=== PATIENT | female | born 1985 | race Caucasian/White ===

== ENCOUNTER 2017-04-07 13:55 | Inpatient (IN) ==
[2017-04-07] MEDS ORDERED: Ondansetron 4 MG/2 ML VIAL IVP PRN ×2 (14:30→20:11)
[2017-04-07] MEDS ORDERED: Famotidine 20 MG/2 ML VIAL IVP PRN (14:30)
[2017-04-07] MEDS ORDERED: Ringers Solution, Lactated 1,000 ML IVC SCH ×2 (14:30→20:11)
[2017-04-07] MEDS ORDERED: Naloxone 0.4 MG/ML INJ IVP PRN (14:30)
[2017-04-07] MEDS ORDERED: Metoclopramide 10 MG/2 ML VIAL IVP PRN ×2 (14:30→20:11)
[2017-04-07] MEDS ORDERED: CeFAZolin Premix DUPLEX 2,000 MG/50 ML BAG IVPB ONE (14:35)
[2017-04-07 14:47] LABS: Basophils % 0.1 %; Hematocrit 37.2 % (35.3-44.9); Hemoglobin 12.9 g/dL (11.5-15.4); Immature Granulocytes % 0.5 % (0-4); Lymphocytes # 2.3 K/mcL (0.6-4.6); Lymphocytes % 14.3 %; Mean Corpuscular HGB Conc 34.7 g/dL (31.6-35.5); Mean Corpuscular Hemoglobin 30.9 pg (28.0-33.3); Mean Corpuscular Volume 89.2 fL (83.0-100.0); Mean Platelet Volume 10.5 fL (9.4-12.4); Monocytes # 0.8 K/mcL (0.0-1.3); Monocytes % 5.2 %; Neutrophils # 12.8 K/mcL (1.6-8.9); Platelet Count 393 K/mcL (140-400); Red Blood Count 4.17 M/mcL (3.82-4.97); Red Cell Distribution Width 12.2 % (11.5-14.5); Segmented Neutrophils % 79.9 %
--- NOTE | 2017-04-07 16:10 | Anesthesia Evaluation PreOp ---
Date of Encounter: 04/07/17 Time of Encounter: 16:08 - Past History Planned Operation: csection Cardiac History: Denies any Significant Hx Pulmonary History: Smoker (1 pack per day), Pack/yr (12) EMERGENCY PLANNING AND RESPONSE MANAGER History: Denies Any Significant HX Other Medical History: Other (Frequent heartburn during ) Anesthesia History: No Prior Anesthetic Complications, Past Anesthesia ( Discectomy L3-4 in 2005) : Yes (37 weeks ) Alcohol Use: none Drug use: none Medications and Allergies Vitamins 04/07/17 [History] 3 Allergy/AdvReac Type Severity Reaction Status Date / Time sulfamethoxazole Allergy Vomiting Verified 07/12/16 19:26 [From Bactrim] trimethoprim [From Bactrim] Allergy Vomiting Verified 07/12/16 19:26 - Meds/Allergy Pre-op Review Medications Reviewed: Yes Allergies Reviewed: Yes Beta Blockers on Current Med List: No Anesthesia Results - Labs 04/07/17 14:30 Anesthesia Exam O2 Sat Height 1.65 m Height 1.65 m Weight 104.8 kg Weight 104.8 kg Height: 65 Weight: 105 NPO (# of Hours): greater than 8 hrs - HEENT Pupil (Motor): Pupils equal Mallampati: I Teeth: Normal Oral Opening: Greater than 3 - EMERGENCY PLANNING AND RESPONSE MANAGER LOC: Oriented EMERGENCY PLANNING AND RESPONSE MANAGER Motor: Normal RUE, Normal LUE, Normal RLE, Normal LLE, Normal Face EMERGENCY PLANNING AND RESPONSE MANAGER Sensory: Normal: RUE, LUE, RLE, LLE, Face - Cardiac Rhythm: Regular Murmur: None JVD: No Carotid Bruit: No - Pulmonary Breath Sounds: bilateral Clear Respiratory Effort: Symmetrical Anesthesia Assess/Plan ASA Score: 2 Modified [place] Scale for Level of Consciousness: Cooperative, oriented, and tranquil Anesthetic Plan: Regional Monitoring Plan: Standard Monitors Recovery Plan: PACU
--- NOTE | 2017-04-07 16:38 | OB/GYN History & Physical ---
Date of Encounter: 04/07/17 Time of Encounter: 16:35 Assessment and Plan (1) and not yet delivered in third trimester Current visit: Yes Status: Acute (2) 37 weeks gestation of Current visit: Yes Status: Acute (3) Previous section complicating Current visit: Yes Status: Acute (4) Intrauterine growth restriction (IUGR) affecting care of mother, third trimester, single gestation Current visit: Yes Status: Acute Patient will be prepared for a repeat low transverse section History of Present Illness HPI: Ms. Garcia is a 31 year old female 2 para 1 at 37-0/7 weeks by a 9-5/ 7 week ultrasound who presented to labor and delivery from the office for section due to intrauterine growth restriction. Patient is a scheduled repeat section approximately 2 weeks however today we did a growth ultrasound and it showed the baby was less than the 10th percentile on growth with all measurements close to the 2.5 percentile amniotic fluid index was also 10 cm due to the intrauterine growth restriction and being 37 weeks delivery was recommended and since she is a repeat section she will undergo that. Patient had signed tubal papers but only wants tubal ligation if the lower uterine segment is thin and has not recommended she have any more babies. Patient is O+, rubella positive, GBS positive Past Med Surg Social Fam HX - Past Medical History Source: patient, old records reviewed Medical history: no medical history Psychiatric history: no psych history - Past Surgical History Surgical History: , other (Back surgery L4-L5 herniated disc repair) - Social History Smoking Status: Current every day smoker Smokeless Tobacco Status: No Alcohol use: none Drug use: none Occupational status: unemployed Current living situation: Home - Independent Activity Level: Independent ambulation Recent Out of Country Travel Within the Last 8 Weeks: No Exposure or Possible Exposure to Illness During Travel: No - Family History Mother Living Status: Still Living Hx Family Psychosocial Disorders: Yes (schizophrenia) - Additional Family History Additional family history: Family history noncontributory at this time Obstetrical History - Pregnancies : 2 Para: 1 Term: 1 : 0 Ab's: 0 Livin Medications and Allergies Vitamins 04/07/17 [History] 3 Allergy/AdvReac Type Severity Reaction Status Date / Time sulfamethoxazole Allergy Vomiting Verified 07/12/16 19:26 [From Bactrim] trimethoprim [From Bactrim] Allergy Vomiting Verified 07/12/16 19:26 Review of System OB All systems PM: reviewed and no additional remarkable complaints except as stated Exam - Constitutional Constitutional: well developed, well nourished, no acute distress, average body habitus - HEENT HEENT: EOMI, PERRL - Neck Neck exam: full ROM - Lungs Respiratory exam: CTAB - Cardiovascular Cardiovascular exam: RRR - Abdomen Abdomen: Present: bowel sounds normal, gravid - Cervix Dilation: 0 Effacement: 50 Station: -3 - Comments Comments: heart tones 140s reactive occasional contractions seen Results Result Diagrams: 04/07/17 14:30 Abnormal lab results WBC 16.1 K/mcL (4.3-11.1) H 04/07/17 14:30 Neutrophils # 12.8 K/mcL (1.6-8.9) H 04/07/17 14:30 All other labs normal. - VTE Reasons for not Prescribing Prophylaxis: Treatment not Indicated - Low risk for VTE
[2017-04-07] MEDS ORDERED: *HR* FentaNYL (PF) 100 MCG/2 ML VIAL ONE (16:46)
[2017-04-07] MEDS ORDERED: Morphine Sulfate/PF 5mg/10mL Vial ONE (16:46)
[2017-04-07] MEDS ORDERED: *HR* Oxytocin 10 UNIT/ML VIAL IM ONE (17:05)
[2017-04-07] MEDS ORDERED: Ringers Solution, Lactated 1,000 ML ONE (17:05)
[2017-04-07] MEDS ORDERED: *HR* Phenylephrine 10 MG/ML VIAL ONE (17:05)
[2017-04-07] MEDS ORDERED: Ketorolac 30 MG/ML VIAL IVP PRN (17:20)
[2017-04-07] MEDS ORDERED: *HR* OxyCODONE Immed Rel 5 MG TABLET PO PRN (17:20)
--- NOTE | 2017-04-07 18:06 | OB/GYN Procedure Note ---
Section - Date of procedure: 04/07/17 Preop diagnosis: other (Intrauterine at 37-0/7 weeks, previous section 1, intrauterine growth restriction less than the 10th percentile) Post-op diagnosis: same Procedure: repeat low transverse Surgeon: Houston Nuñez Estimated blood loss (cc): 400 Was there an surgical assistant certified present: No Anesthesiologist: Loan Romero Artificial Fly Tier: Cal Ervin Anesthesia Type: Spinal section complications: none Disposition: L&D Recovery Room Specimens: Placenta - Infant (s) A Delivery Date: 04/07/17 Delivery Time: 17:20 Presentation: vertex Position: JING Route of delivery: other ( section) Gender: Female Viability: Viable Pounds: 5 Ounces: 7 Gram Weight: 2.46 kg at 1 minute: 8 at 5 minutes: 9 Shoulder Dystocia: not encountered Specimens collected: cord blood Placenta: spontaneous Cord: nuchal cord, 3 umbilical vessels, nuchal reduced - Narrative Narrative: Patient is a 31-year-old 2 para 1 at 37-0/7 weeks who had presented from the office secondary to intrauterine growth restriction diagnosed on a recent ultrasound. Patient was in the office for visit had an ultrasound for growth showed that the baby was less than the 10th percentile with most of the measurements measuring at the 2.5 percentile because she was 37 weeks previous section case was discussed with 1 partners agree patient needs to be delivered and she was sent over for repeat section. Patient had signed tubal papers but only wanted a tubal if that lower uterine segment was thin and I did not recommend any more children. Procedure: Patient was taken to the operating room where spinal anesthesia was found be adequate. She was placed in the dorsal supine position prepped and draped in usual fashion. Timeout was obtained. A Pfannenstiel incision was made with a scalpel and carried down through the underlying tissue to the fascia was identified. The fascia was nicked in midline and extended laterally with the Arellano scissors. The superior and inferior edges of the fascia grasped tented up and dissected off the rectus muscles. Rectus muscles were in midline. Peritoneum was identified tented up and entered sharply. This was extended superiorly and inferiorly with Metzenbaum scissors. The bladder blade was inserted the vesicouterine peritoneum was identified tented up and entered sharply. This was extended laterally and the bladder flap was created digitally. The lower uterine segment was incised with the scalpel extended laterally with digital manipulation. Patient had minimal fluid noted this time 's head was delivered there was a nuchal cord 1 loose and reduced the infant was fully delivered the cord was clamped and cut and infant was handed off to waiting pediatric team. Cord blood was collected and placenta was then spontaneously delivered. An Lisbet self-retaining retractor was then placed in the incision the uterus was then cleaned of all clots and debris and the lower uterine segment was closed using 0 Vicryl in a running locking stitch by a 2 layer closure. Good hemostasis was noted. The gutters were cleaned of all clots and debris and copiously irrigated. We did not perform a tubal ligation since the lower segment was not baths and and we did discuss with the patient and she did not want me to proceed on with a tubal ligation. The self- retaining retractor was then removed from the abdomen the fascia was closed using a #1 stratafix in a running stitch the subcutaneous tissue was closed using a 0 chromic in a running stitch and the skin was closed using a 4-0 Vicryl in a subcuticular manner. A PRIMEO dressing was applied to the incision. All needles lap and sponge counts were correct 3 she did receive preoperative antibiotics. She was taken to the recovery room in stable condition she will be observed 2 hours before being taken floor.
[2017-04-07] MEDS ORDERED: *HR* OxyCODONE/APAP 5/325 TABLET PO PRN (20:11)
[2017-04-07] MEDS ORDERED: Simethicone 80 MG TAB.CHEW PO PRN (20:11)
[2017-04-07] MEDS ORDERED: Sennosides 8.6 MG TABLET PO PRN (20:11)
[2017-04-07] MEDS ORDERED: Oxytocin 20 units/ LR 1000 mL 20 UNIT/1,000 ML BAG IVC ONE (20:14)
[2017-04-07] MEDS: Oxytocin 20 units/ LR 1000 mL 20 UNIT/1,000 ML BAG IVC SCH (20:26)
[2017-04-07] MEDS: *HR* OxyCODONE/APAP 10/325 TABLET PO PRN (22:44)
[2017-04-08] MEDS: Oxytocin 20 units/ LR 1000 mL 20 UNIT/1,000 ML BAG IVC SCH (04:04)
[2017-04-08 04:59] LABS: Basophils % 0.2 %; Hematocrit 33.4 % (35.3-44.9); Immature Granulocytes % 0.6 % (0-4); Lymphocytes # 2.5 K/mcL (0.6-4.6); Lymphocytes % 13.5 %; Mean Corpuscular HGB Conc 33.8 g/dL (31.6-35.5); Mean Corpuscular Hemoglobin 30.8 pg (28.0-33.3); Mean Platelet Volume 10.4 fL (9.4-12.4); Monocytes % 5.5 %; Platelet Count 322 K/mcL (140-400); Red Blood Count 3.67 M/mcL (3.82-4.97); Red Cell Distribution Width 12.3 % (11.5-14.5); Segmented Neutrophils % 80.2 %
[2017-04-08 05:03] LABS: Hemoglobin 11.3 g/dL (11.5-15.4)
[2017-04-08] MEDS: *HR* OxyCODONE/APAP 10/325 TABLET PO PRN ×3 (07:31→23:28)
--- NOTE | 2017-04-08 08:46 | OB/GYN Progress Note ---
Date of Encounter: 04/08/17 Time of Encounter: 08:45 - Assessment and Plan (1) Postoperative complication of section Current Visit: Yes Status: Acute Patient doing well status post day #[address] Nuñez on 04/07/17 Repeat at 37 weeks gestation due to intrauterine growth restriction Pain is well-controlled Patient is tolerating regular diet and passing flatus/ voiding without difficulty Lochia is light without clots Bottle feeding without difficulty Anticipate discharge home tomorrow (2) Previous section complicating Current Visit: Yes Status: Acute Subjective - Subjective Principal diagnosis: POD #1 repeat Interval history: Patient is doing well. Pain currently well controlled with percocet 10. Patient is feeding with formula due to history of difficulty after first , reports no concerns or questions. She does not need a breast pump after discharge. She denies headaches, vision changes, f/c/n/v. Reports minimal lochia without clots. Denies difficulty voiding. Reports chronic constipation. Reports incision is doing well with minimal pain, no drainage or excessive bleeding noted. Patient has not been able to ambulate yet but reports that she will try later today. She is tolerating PO intake. Does not have further acute concerns or questions. Patient reports: appetite normal, voiding normally, pain well controlled [place]: doing well, nursing well, bottle feeding Objective - Vital Signs Latest vital signs: Vital Signs Temp Pulse Resp BP Pulse Ox 04/08/17 07:15 97.7 F 79 20 113/72 04/08/17 03:24 97.9 F 60 16 106/68 96 04/07/17 23:30 97.6 F 74 14 118/73 94 04/07/17 22:31 97.8 F 74 16 102/66 97 04/07/17 21:35 97.5 F L 64 16 137/70 96 04/07/17 21:00 98.2 F 75 20 113/67 95 04/07/17 20:30 97.9 F 76 14 116/72 97 Intake and Output 04/07/17 04/08/17 04/08/17 23:59 07:59 15:59 Intake Total 1600 / 1600 240 / 240 Output Total 150 / 150 650 / 650 Balance -150 / -150 950 / 950 240 / 240 Intake: IV Fluids 1000 / 1000 Pitocin 20 unit In 1,000 ml @ 1000 / 1000 125 mls/hr IVC .Q8H [facility] Rx#: [id number] Oral 600 / 600 240 / 240 Output: Urine 300 / 300 Catheter 150 / 150 350 / 350 Other: Meal Breakfast Percent of Meal Consumed 100% Weight 101.7 kg 101.65 kg Patient Weight 04/08/17 23:59 Weight 101.65 kg - Exam Lungs: bilateral: normal Extremities: Present: normal Abdomen: Present: normal appearance Incision: Present: normal, dry, intact, dressed Uterus: Present: normal, firm (non-tender) - Labs Labs: Laboratory Results - last 24 hr 04/07/17 04/08/17 14:30 04:47 WBC 16.1 H 18.8 H RBC 4.17 3.67 L Hgb 12.9 11.3 L D Hct 37.2 33.4 L MCV 89.2 91.0 MCH 30.9 30.8 MCHC 34.7 33.8 RDW 12.2 12.3 Plt Count 393 322 MPV 10.5 10.4 Immature Gran % 0.5 0.6 Seg Neutrophils % 79.9 80.2 Lymphocytes % 14.3 13.5 Monocytes % 5.2 5.5 Eosinophils % 0.0 0.0 Basophils % 0.1 0.2 Neutrophils # 12.8 H 15.0 H Lymphocytes # 2.3 2.5 Monocytes # 0.8 1.0 Eosinophils # 0.0 0.0 Basophils # 0.0 0.0
[2017-04-08] MEDS ORDERED: Prenatal Vit/FA 1 EACH TABLET PO SCH (09:00)
[2017-04-08] MEDS: Ibuprofen 600 MG TABLET PO PRN ×2 (10:46→18:27)
[2017-04-09] MEDS: Ibuprofen 600 MG TABLET PO PRN (04:00)
[2017-04-09 07:45] VITALS: BP 123/70
--- NOTE | 2017-04-09 08:28 | Discharge Summary ---
Date of Encounter: 04/09/17 Time of Encounter: 08:25 - Discharge Diagnosis (1) Status post section Priority: Primary Status: Acute Comments: Patient doing well status post day #[address] Nuñez on 04/07/17 Repeat at 37 weeks gestation due to intrauterine growth restriction Pain is well-controlled Patient is tolerating regular diet and voiding without difficulty; has not had BM as of yet Lochia is light without clots Bottle feeding without difficulty Anticipatory guidance discussed No questions at this time; desires discharge home (2) Intrauterine growth restriction (IUGR) affecting care of mother, third trimester, single gestation Priority: Primary Status: Acute - Discharge Medications Prescriptions: OxyCODONE/APAP 5/325 [Percocet 5/325 MG] 1 each PO Q4HR PRN 5 Days #30 tablet PRN Reason: Moderate pain 4-6 Ibuprofen [Motrin] 600 mg PO Q6HR PRN #120 tablet PRN Reason: Cramping Docusate [Colace] 100 mg PO BID #60 capsule Ferrous Sulfate 325 mg PO DAILY #30 tablet Simethicone [Gas-X] 80 mg PO TID PRN #20 tab.chew PRN Reason: Dyspepsia Home Medications: Vitamins 04/07/17 [History] Docusate [Colace] 100 mg PO BID #60 capsule 04/09/17 [Rx] Ferrous Sulfate 325 mg PO DAILY #30 tablet 04/09/17 [Rx] Ibuprofen [Motrin] 600 mg PO Q6HR PRN #120 tablet 04/09/17 [Rx] OxyCODONE/APAP 5/325 [Percocet 5/325 MG] 1 each PO Q4HR PRN 5 Days #30 tablet [Rx] Simethicone [Gas-X] 80 mg PO TID PRN #20 tab.chew 04/09/17 [Rx] Allergies/Adverse Reactions: 3 Allergy/AdvReac Type Severity Reaction Status Date / Time sulfamethoxazole Allergy Vomiting Verified 07/12/16 19:26 [From Bactrim] trimethoprim [From Bactrim] Allergy Vomiting Verified 07/12/16 19:26 Data Procedures and tests throughout hospitalization: Laboratory Tests 04/07/17 04/08/17 14:30 04:47 WBC 16.1 H 18.8 H RBC 4.17 3.67 L Hgb 12.9 11.3 L D Hct 37.2 33.4 L MCV 89.2 91.0 MCH 30.9 30.8 MCHC 34.7 33.8 RDW 12.2 12.3 Plt Count 393 322 MPV 10.5 10.4 Immature Gran % 0.5 0.6 Seg Neutrophils % 79.9 80.2 Lymphocytes % 14.3 13.5 Monocytes % 5.2 5.5 Eosinophils % 0.0 0.0 Basophils % 0.1 0.2 Neutrophils # 12.8 H 15.0 H Lymphocytes # 2.3 2.5 Monocytes # 0.8 1.0 Eosinophils # 0.0 0.0 Basophils # 0.0 0.0 Date of admission: 04/07/17 13:55 Primary care physician: Malaika Wiley CNP Discharging clinician: Regis Sun Anticipated date of discharge: 04/09/17 - Patient Status Disposition: Home, Self-Care Condition: Good Functional capacity at discharge: independent ambulation Overall status at discharge: patient is progressing back to baseline - Discharge Instructions Follow Up With: Malaika Wiley CNP [Primary Care Provider] - Houston Nuñez DO [Partnered Physician] - - Diet and Activity Activity: resume usual activities as tolerated Diet: regular diet Hospital Course Reason for admission: section Delivery: section Other procedures: none complications: none Discharge diagnosis: IUP at term delivered [place] baby: female Hospital course: 31F at 37 weeks gestational age was referred from office for repeat delivery due to IUGR diagnosed on recent ultrasound. was performed without complications. Tubal ligation was discussed with patient, but ultimately declined and not performed. Hospital course uneventful. Pain well controlled with no signs of infection or instability. Is voiding and ambulatory. Pain well-controlled with Percocet (pain scale with ambulation reported at 2/10). Discharged in good/stable condition. "- Date of procedure: 04/07/17 Preop diagnosis: other (Intrauterine at 37-0/7 weeks, previous section 1, intrauterine growth restriction less than the 10th percentile) Post-op diagnosis: same Procedure: repeat low transverse Surgeon: Houston Nuñez Estimated blood loss (cc): 400 Was there an financial legal assistant present: No Anesthesiologist: Loan Romero Senior Process Analyst: Cal Ervin Anesthesia Type: Spinal section complications: none Disposition: L&D Recovery Room Specimens: Placenta - Infant (s) A Infant Delivery Date: 04/07/17 Infant Delivery Time: 17:20 Presentation: vertex Position: JING Route of delivery: other ( section) Gender: Female Viability: Viable Pounds: 5 Ounces: 7 Gram Weight: 2.46 kg at 1 minute: 8 at 5 minutes: 9 Shoulder Dystocia: not encountered Specimens collected: cord blood Placenta: spontaneous Cord: nuchal cord, 3 umbilical vessels, nuchal reduced Procedure: Patient was taken to the operating room where spinal anesthesia was found be adequate. She was placed in the dorsal supine position prepped and draped in usual fashion. Timeout was obtained. A Pfannenstiel incision was made with a scalpel and carried down through the underlying tissue to the fascia was identified. The fascia was nicked in midline and extended laterally with the Arellano scissors. The superior and inferior edges of the fascia grasped tented up and dissected off the rectus muscles. Rectus muscles were in midline. Peritoneum was identified tented up and entered sharply. This was extended superiorly and inferiorly with Metzenbaum scissors. The bladder blade was inserted the vesicouterine peritoneum was identified tented up and entered sharply. This was extended laterally and the bladder flap was created digitally. The lower uterine segment was incised with the scalpel extended laterally with digital manipulation. Patient had minimal fluid noted this time 's head was delivered there was a nuchal cord 1 loose and reduced the was fully delivered the cord was clamped and cut and infant was handed off to waiting pediatric team. Cord blood was collected and placenta was then spontaneously delivered. An Lisbet self-retaining retractor was then placed in the incision the uterus was then cleaned of all clots and debris and the lower uterine segment was closed using 0 Vicryl in a running locking stitch by a 2 layer closure. Good hemostasis was noted. The gutters were cleaned of all clots and debris and copiously irrigated. We did not perform a tubal ligation since the lower segment was not baths and and we did discuss with the patient and she did not want me to proceed on with a tubal ligation. The self- retaining retractor was then removed from the abdomen the fascia was closed using a #1 stratafix in a running stitch the subcutaneous tissue was closed using a 0 chromic in a running stitch and the skin was closed using a 4-0 Vicryl in a subcuticular manner. A PRIMEO dressing was applied to the incision. All needles lap and sponge counts were correct 3 she did receive preoperative antibiotics. She was taken to the recovery room in stable condition she will be observed 2 hours before being taken floor." Time Attestation: Total time spent providing and/or coordinating discharge services: Time Spent: Less than 30 minutes - VTE Reasons for not Prescribing Prophylaxis: Treatment not Indicated - Low risk for VTE Documentation of Mechanical Device: Intermittent pneumatic compression device - Attending Attestation I examined this patient and my medical decision-making was reviewed with the Resident Physician. I agree with the documented findings, disposition and treatment plan as described except to the extent set forth below. HANK Mann Exam - Constitutional Vitals: Temp Pulse Resp BP Pulse Ox 97.9 F 78 20 123/70 98 04/09/17 07:45 04/09/17 07:45 04/09/17 07:45 04/09/17 07:45 04/08/17 19:40 Gen: AOx3, no acute distress, well-nourished HEENT: normocephalic, no scleral icterus/injection, pupils equal/round, oral mucosa pink/moist Cardio: RRR without murmurs or gallops Pulm: CTAB, no wheezes/rales/rhonchi, normal respiratory effort Abd: soft, nontender, uterine fundus not palpable; incision site well- healing, dry and without any erythema/edema/dehiscence/purulence Ext/Neuro: pulses 2+ b/l DP, trace pedal edema, patellar reflexes 2+ b/l General appearance IM: A&O X 3, pleasant, answers questions appropriately - Respiratory Respiratory exam: Present: CTAB - Cardiovascular Cardiovascular exam IM: Present: RRR, +S1, +S2 - GI/Abdominal GI/Abdominal exam IM: normal bowel sounds - Uterine Tone: Firm Uterus Position: 2 Fingers Below Umbilicus, Midline - Neurological Exam Neurological exam: alert, oriented X3, reflexes normal
== END 2017-04-09 09:50 | disposition home or self-care (01) | DRG 540 ==
LOC: 1NENULAB 13:55 → 1NENUOBS 20:14
PROVIDERS: ADMIT Obstetrics & Gynecology; ATTEND Obstetrics & Gynecology